=== PATIENT | female | born 1950 | race Caucasian/White ===

== ENCOUNTER 2020-12-09 13:47 | Outpatient (CLI) | payer MEDICARE, OTHER | END 2020-12-09 13:48 | disposition home or self-care (01) | LOC: CSHMAMMO 13:47 | PROVIDERS: ATTEND Family Medicine | DX: Z13.820 Encounter for screening for osteoporosis (principal); M81.0 Age-related osteoporosis without current pathological fracture | CPT/HCPCS: 77080 ==

== ENCOUNTER 2020-12-09 14:20 | Outpatient (CLI) | payer MEDICARE, OTHER | END 2020-12-09 14:21 | disposition home or self-care (01) | LOC: CSHULT 14:20 | PROVIDERS: ATTEND Family Medicine | DX: R22.42 Localized swelling, mass and lump, left lower limb (principal) | CPT/HCPCS: 76999 ==

== ENCOUNTER 2021-08-11 11:09 | Outpatient (CLI) | payer MEDICARE, OTHER | END 2021-08-11 11:10 | disposition home or self-care (01) | LOC: CSHMAMMO 11:09 | PROVIDERS: ATTEND Family Medicine | DX: Z12.31 Encounter for screening mammogram for malignant neoplasm of breast (principal) | CPT/HCPCS: 77063; 77067 ==

== ENCOUNTER 2022-06-03 14:44 | Outpatient (CLI) | payer OTHER | END 2022-06-03 14:45 | disposition home or self-care (01) | LOC: CSHMRI 14:44 | PROVIDERS: ATTEND Family Medicine | DX: M54.12 Radiculopathy, cervical region (principal); M43.12 Spondylolisthesis, cervical region; S22.41XA Multiple fractures of ribs, right side, initial encounter for closed fracture; M47.812 Spondylosis without myelopathy or radiculopathy, cervical region; M48.02 Spinal stenosis, cervical region; M40.204 Unspecified kyphosis, thoracic region; M47.814 Spondylosis without myelopathy or radiculopathy, thoracic region | CPT/HCPCS: 72141; 72146 ==

== ENCOUNTER 2022-08-18 11:08 | Outpatient (CLI) | payer OTHER | END 2022-08-18 11:09 | disposition home or self-care (01) | LOC: CSHMAMMO 11:08 | PROVIDERS: ATTEND Family Medicine | DX: Z12.31 Encounter for screening mammogram for malignant neoplasm of breast (principal) | CPT/HCPCS: 77063; 77067 ==

== ENCOUNTER 2023-09-17 13:02 | Outpatient (CLI) | payer OTHER | END 2023-09-17 13:03 | disposition home or self-care (01) | LOC: CSHMAMMO 13:02 | PROVIDERS: ATTEND Family Medicine | DX: Z12.31 Encounter for screening mammogram for malignant neoplasm of breast (principal) | CPT/HCPCS: 77063; 77067 ==

== ENCOUNTER 2024-08-14 14:15 | Outpatient (CLI) | payer OTHER, MEDICAID | END 2024-08-14 14:16 | disposition home or self-care (01) | LOC: CSHMRI 14:15 | PROVIDERS: ATTEND Student in an Organized Health Care Education/Training Program | DX: M23.91 Unspecified internal derangement of right knee (principal) ==